=== PATIENT | male | born 1995 | race Caucasian/White ===

== ENCOUNTER 2023-01-27 20:15 | Emergency (ER) | payer MEDICAID, OTHER ==
[~2023-01-27] VITALS: Ht 175 cm; Wt 72.0 kg
[2023-01-27 20:30] VITALS: BP 124/75
[2023-01-27] MEDS ORDERED: DOXY100T31 PO (20:38)
--- NOTE | 2023-01-27 20:38 | ED Upper Extremity ---
General Stated Complaint: POSS SPIDER BITE ON RT ARM Source: patient Exam Limitations: no limitations History of Present Illness Date Seen by Provider: Jan 27, 2023 Time Seen by Provider: 20:35 Initial Comments Patient is a 27-year-old male who presents ED with a potential abscess to his right forearm. Noted waking up with a scab 3 days ago. Noted increased redness and swelling and pain up his forearm. Patient was out in the brown at the time. Denies pulling off a tick. Denies any fever, chills, nausea vomit, diarrhea. Patient reports some purulent drainage from the wound today. Denies of any specific injury. Concern for possible spider bite but once again did not note any bite. Denies chest pain, shortness of breath, visual changes, sore throat, ear pain Allergies and Home Medications Allergies Coded Allergies: No Known Drug Allergies (Unverified , 01/27/23) Patient Home Medication List Home Medication List Reviewed: Yes Doxycycline Monohydrate (Doxycycline Monohydrate) 100 Mg Tablet, 100 MG PO BID Prescribed by: AMELIA BHANDARI on 01/27/232037 Review of Systems Constitutional: No chills, No diaphoresis, No fever, No malaise, No weakness EENTM: No ear pain, No blurred vision, No hoarseness, No mouth pain, No mouth swelling Respiratory: No cough, No dyspnea on exertion Cardiovascular: No chest pain Gastrointestinal: No abdominal pain, No diarrhea, No nausea, No vomiting Genitourinary: No decreased output, No discharge Musculoskeletal: No back pain, No joint pain; muscle pain Skin: change in color All Other Systems Reviewed Negative Unless Noted: Yes Physical Exam Vital Signs Vital Signs - First Documented 01/27/23 20:30 Temp 36.6 Pulse 55 Resp 16 B/P (MAP) 124/75 (91) Capillary Refill : Height, Weight, BMI Height: '" Weight: lbs. oz. kg; BMI Method: General Appearance: WD/WN, no apparent distress HEENT: PERRL/EOMI, normal ENT inspection, TMs normal, pharynx normal Neck: non-tender, full range of motion, supple Cardiovascular: regular rate, rhythm, no edema, no gallop, no JVD Respiratory: chest non-tender, lungs clear, normal breath sounds, no respi ratory distress, no accessory muscle use Gastrointestinal: normal bowel sounds, non tender, soft, no organomegaly Back: normal inspection, no CVA tenderness, no vertebral tenderness Elbow/Forearm: Right, swelling (Localized erythema and swelling to the right mid forearm. 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 Anesthetized with 1% lidocaine 4 mls local. Prepped with iodine. Made a small incision. Mod amount of purulent drainage. Area was left open. Progress/Results/Core Measures Results/Orders My Orders Orders - ELSY JUNE Lidocaine 1% Inj 10 Ml (Xylocaine 1% Inj (01/27/23 20:45) Doxycycline Hyclate Tablet (Doxycycline (01/27/23 20:38) Medications Given in ED Current Medications Medications Dose Ordered Sig/Jake Route Start Time Stop Time Status Last Admin Dose Admin Lidocaine HCl 10 ml ONCE ONCE INJ 01/27/23 20:45 01/27/23 20:46 DC 01/27/23 20:49 10 ML Vital Signs/I&O 01/27/23 20:30 Temp 36.6 Pulse 55 Resp 16 B/P (MAP) 124/75 (91) Departure Communication (PCP) Reviewed previous visits. Differential diagnosis cellulitis versus abscess versus bug bite. Patient states symptoms started 3 days ago. Increased redness and swelling. Does report some mild purulent drainage. On exam concerning for a developing abscess. Discussed with patient recommend incision and drainage to allow this area to heal quicker. He agreed. Made a small incision with small to moderate amount of purulent drainage. Area was left open to allow drainage. Started patient on doxycycline. Unsure if he was bitten by a tick or spider of some sort. No fever, chills, chest pain, shortness of breath. Recommend Neosporin topical twice a day. Keep the area covered. Recommend recheck in 2 to 3 days with your primary care physician. If increased redness or swelling to return back to ED. Patient does not appear toxic or septic. Impression Primary Impression: Abscess Disposition: 01 HOME, SELF-CARE Condition: Stable Departure-Patient Inst. Decision time for Depature: 20:36 Referrals: [facility] [place] NO,LOCAL PHYSICIAN (PCP) Primary Care Physician Patient Instructions: Abscess Incision and Drainage (DC) Add. Discharge Instructions: If increased redness, swelling to return back to ED. Scripts Doxycycline Monohydrate (Doxycycline Monohydrate) 100 Mg Tablet 100 MG PO BID for 7 Days, #14 TAB Prov: ELSY JUNE 01/27/23 ELSY JUNE Jan 27, 2023 20:38
[2023-01-27] MEDS ORDERED: LIDOCAINE 1% INJ 10 ML VIAL INJ ONE (20:45)
== END 2023-01-27 20:59 | disposition home or self-care (01) ==
LOC: ER 20:25
DX: L02.413 Cutaneous abscess of right upper limb (principal); Z28.310 Unvaccinated for COVID-19
CPT/HCPCS: 99283